=== PATIENT | male | born 1995 | race African-American/Black ===

== ENCOUNTER 2021-08-15 14:03 | Inpatient (IN) | payer MEDICAID ==
[~2021-08-15] VITALS: Ht 175.3 cm; Wt 78.9 kg
[2021-08-15] MEDS ORDERED: PERTUSS(ACELL),DIPH,TET VAC/PF 0.5 ML SYRINGE IM. ONE (15:00)
[2021-08-15] MEDS ORDERED: SODIUM CHLORIDE 0.9% 250 ML IRRIG SOLUTION BOTTLE IRRIG ONE (15:00)
[2021-08-15 15:09] LABS: BASOPHILS % (AUTO) 0.2 % (0.0-2.0); EOSINOPHILS % (AUTO) 0.5 % (1.0-6.0); HEMATOCRIT 42.9 % (41-53); HEMOGLOBIN 14.8 g/dL (13.5-17.5); LYMPHOCYTES # (AUTO) 1.2 K/uL (1.0-4.8); LYMPHOCYTES % (AUTO) 21.9 % (22.0-44.0); MEAN CORPUSCULAR HEMOGLOBIN 31.2 pg (26.0-34.0); MEAN CORPUSCULAR HGB CONC 34.4 G/dL (31.0-37.0); MEAN CORPUSCULAR VOLUME 91 fL (80-100); MONOCYTES # (AUTO) 0.5 K/uL (0.1-1.0); MONOCYTES % (AUTO) 9.3 % (2.0-9.0); NEUTROPHILS # (AUTO) 3.8 K/uL (1.8-7.7); NEUTROPHILS % (AUTO) 68.1 % (40.0-70.0); PLATELET COUNT (AUTO) 208 K/uL (150-450); RED BLOOD CELL COUNT(AUTO) 4.73 MIL/uL (4.50-5.90); RED CELL DISTRIBUTION WIDTH 13.2 % (11.5-14.5)
[2021-08-15 15:20] LABS: ANION GAP 7 mmol/L (8-16); CALCIUM, TOTAL 8.6 mg/dL (8.8-10.5); CARBON DIOXIDE 32 mmol/L (22-29); CHLORIDE 103 mmol/L (98-107); CREATININE 0.99 mg/dL (0.60-1.30); GLOMERULAR FILTR. RATE CALC > 60 mL/min (>60); GLUCOSE,RANDOM 88 mg/dL (70-110); POTASSIUM 4.3 mmol/L (3.5-5.1); SODIUM SERUM 142 mmol/L (136-145); UREA NITROGEN, BLOOD 17 mg/dL (7-18)
[2021-08-15 15:26] LABS: ALANINE AMINOTRANSFERASE 25 U/L (12-78); ALBUMIN 3.8 g/dL (3.4-5.0); ALKALINE PHOSPHATASE 59 U/L (46-116); ASPARTATE AMINOTRANSFERASE 39 U/L (15-37); BILIRUBIN,TOTAL 1.2 mg/dL (0.1-1.0); TOTAL PROTEIN, SERUM 7.3 g/dL (6.4-8.2)
[2021-08-15 15:50] LABS: COVID AG,FIA SOURCE NASAL SWAB
[2021-08-15 16:32] LABS: AMPHET/METH SCREEN,URINE NEGATIVE (NEGATIVE); BARBITURATE SCREEN, URINE NEGATIVE (NEGATIVE); BENZODIAZEPINES SCREEN,URINE NEGATIVE (NEGATIVE); CANNABINOID SCREEN,URINE NEGATIVE (NEGATIVE); COCAINE SCREEN,URINE NEGATIVE (NEGATIVE); METHADONE SCREEN, URINE NEGATIVE (NEGATIVE); OPIATE SCREEN,URINE NEGATIVE (NEGATIVE)
[2021-08-15 16:41] LABS: PHENCYCLIDINE SCREEN,URINE NEGATIVE (NEGATIVE)
[2021-08-15] MEDS ORDERED: ZOLPIDEM TARTRATE 10 MG TABLET PO PRN (20:15)
[2021-08-15] MEDS ORDERED: HALOPERIDOL 5 MG TABLET PO PRN (20:15)
[2021-08-15 20:50] VITALS: BP 118/77
[2021-08-16 08:00] VITALS: BP 115/67
[2021-08-16] MEDS ORDERED: IBUPROFEN 600 MG TABLET PO PRN (08:15)
[2021-08-16] MEDS ORDERED: PETROLATUM,WHITE 28 GM JELLY TP PRN (08:15)
[2021-08-16] MEDS ORDERED: DOCUSATE SODIUM 100 MG CAPSULE PO PRN (08:15)
[2021-08-16] MEDS ORDERED: BACITRACIN 28 GM OINTMENT TP PRN (08:15)
[2021-08-16] MEDS ORDERED: OMEPRAZOLE 20 MG CAPSULE PO PRN (08:15)
[2021-08-16] MEDS ORDERED: CloNIDine HCL 0.1 MG TABLET PO PRN (08:15)
[2021-08-16] MEDS ORDERED: ONDANSETRON HCL 4 MG TABLET PO PRN (08:15)
[2021-08-16] MEDS ORDERED: ACETAMINOPHEN 325 MG TABLET PO PRN (08:15)
[2021-08-16] MEDS ORDERED: MAGNESIUM HYDROXIDE SUSPENSION 30 ML UDCUP PO PRN (08:15)
[2021-08-16] MEDS ORDERED: BENZOCAINE/MENTHOL LOZENGE PO PRN (08:15)
[2021-08-16] MEDS ORDERED: LOPERAMIDE HCL 2 MG CAPSULE PO PRN (08:15)
[2021-08-16] MEDS ORDERED: ALBUTEROL SULFATE HFA 90 MCG/PUFF 8 GM INHALER IH PRN (08:15)
[2021-08-16] MEDS ORDERED: MAG HYDROX/AL HYDROX/SIMETH ES 30 ML SUSPENSION UDCUP PO PRN (08:15)
[2021-08-16 16:24] VITALS: BP 103/70
[2021-08-17 08:50] VITALS: BP 115/56
[2021-08-17 16:00] VITALS: BP 108/66
[2021-08-18] MEDS: DIVALPROEX SODIUM 500 MG DR TABLET PO SCH ×2 (08:17→20:23)
[2021-08-18] MEDS: LORazepam 2 MG TABLET PO PRN (08:52)
[2021-08-18 08:53] VITALS: BP 127/64
[2021-08-18 16:17] VITALS: BP 109/52
[2021-08-19 08:30] VITALS: BP 114/73
[2021-08-19] MEDS: DIVALPROEX SODIUM 500 MG DR TABLET PO SCH ×2 (08:41→20:03)
[2021-08-19] MEDS ORDERED: HALOPERIDOL LACTATE 5 MG/ML VIAL IM ONE (11:15)
[2021-08-19] MEDS ORDERED: DiphenhydrAMINE HCL 50 MG/ML VIAL IM ONE (11:15)
[2021-08-19] MEDS ORDERED: LORazepam 2 MG/ML VIAL IM ONE (11:15)
[2021-08-19] MEDS: LORazepam 2 MG TABLET PO PRN (11:25)
[2021-08-19 14:26] LABS: COVID AG,FIA SOURCE NASOPHARYNGEAL
[2021-08-19] MEDS: LURASIDONE HCL 80 MG TABLET PO SCH (20:03)
[2021-08-19] MEDS: LITHIUM CARBONATE 300 MG CAPSULE PO SCH (20:03)
[2021-08-20] MEDS: LITHIUM CARBONATE 300 MG CAPSULE PO SCH ×2 (08:27→20:53)
[2021-08-20] MEDS: DIVALPROEX SODIUM 500 MG DR TABLET PO SCH ×2 (08:27→20:10)
[2021-08-20 08:30] VITALS: BP 114/70
[2021-08-20 16:34] VITALS: BP 115/73
[2021-08-20] MEDS: LURASIDONE HCL 80 MG TABLET PO SCH (20:10)
[2021-08-21 08:00] VITALS: BP 131/64
[2021-08-21] MEDS: LITHIUM CARBONATE 300 MG CAPSULE PO SCH ×2 (08:39→20:10)
[2021-08-21] MEDS: DIVALPROEX SODIUM 500 MG DR TABLET PO SCH ×2 (08:39→20:10)
[2021-08-21 09:36] VITALS: BP 131/64
[2021-08-21] MEDS: LORazepam 2 MG TABLET PO PRN (10:57)
[2021-08-21 16:00] VITALS: BP 108/72
[2021-08-21] MEDS: LURASIDONE HCL 80 MG TABLET PO SCH (20:10)
[2021-08-22 08:00] VITALS: BP 104/60
[2021-08-22] MEDS: DIVALPROEX SODIUM 500 MG DR TABLET PO SCH ×2 (08:11→20:15)
[2021-08-22] MEDS: LITHIUM CARBONATE 300 MG CAPSULE PO SCH ×2 (08:11→20:15)
[2021-08-22 16:52] VITALS: BP 114/81
[2021-08-22] MEDS: LURASIDONE HCL 80 MG TABLET PO SCH (20:15)
[2021-08-23] MEDS ORDERED: DIVA-112 PO ×2 (07:57→08:38)
[2021-08-23] MEDS ORDERED: LURA80TA2 PO ×2 (07:57→08:38)
[2021-08-23] MEDS ORDERED: LITH300C3 PO ×2 (07:57→08:38)
[2021-08-23] MEDS: DIVALPROEX SODIUM 500 MG DR TABLET PO SCH (08:18)
[2021-08-23] MEDS: LITHIUM CARBONATE 300 MG CAPSULE PO SCH (08:18)
== END 2021-08-23 09:15 | disposition home or self-care (01) | DRG 750 ==
LOC: EMS 14:03 → 3EI 20:41
PROVIDERS: ADMIT Psychiatry & Neurology Psychiatry; ATTEND Psychiatry & Neurology Psychiatry
DX: F25.9 Schizoaffective disorder, unspecified (principal); R45.851 Suicidal ideations; F31.9 Bipolar disorder, unspecified; Z20.822 Contact with and (suspected) exposure to COVID-19; F41.9 Anxiety disorder, unspecified; G47.00 Insomnia, unspecified; K59.00 Constipation, unspecified; S51.812A Laceration without foreign body of left forearm, initial encounter; X78.8XXA Intentional self-harm by other sharp object, initial encounter; Y93.89 Activity, other specified; Z91.52 Personal history of nonsuicidal self-harm; Y92.89 Other specified places as the place of occurrence of the external cause; Y99.8 Other external cause status
CPT/HCPCS: 80053; 80164; 85025; 90715; 99285; G0480; J1200; J1630; J2060